=== PATIENT | male | born 1985 | race Caucasian/White ===

== ENCOUNTER 2021-06-21 13:08 | Emergency (ER) | payer MEDICAID ==
[~2021-06-21] VITALS: Ht 170.2 cm; Wt 63.6 kg
[2021-06-21 13:12] VITALS: BP 110/83
[2021-06-21] MEDS ORDERED: IBUP-1984 PO (13:17)
[2021-06-21] MEDS ORDERED: ketorolac tromethamine 15mg/ml inj. IM ONE (13:20)
== END 2021-06-21 13:22 | disposition home or self-care (01) ==
LOC: ER 13:09
DX: M79.604 Pain in right leg (principal); M79.605 Pain in left leg; Z59.0 Homelessness; Z79.899 Other long term (current) drug therapy
CPT/HCPCS: 96372; 99283; J1885

== ENCOUNTER 2021-08-28 23:15 | Emergency (ER) | payer MEDICAID ==
[~2021-08-28] VITALS: Ht 170.2 cm; Wt 72.2 kg
[2021-08-29 00:11] VITALS: BP 133/66
[2021-08-29] MEDS ORDERED: ketorolac trometh inj. 60 MG/2 ML VIAL IM ONE (01:30)
[2021-08-29] MEDS ORDERED: IBUP-1984 PO (01:31)
== END 2021-08-29 02:53 | disposition home or self-care (01) ==
LOC: ER 23:16
DX: M79.605 Pain in left leg (principal); Z59.00 Homelessness unspecified
CPT/HCPCS: 96372; 99283; J1885

== ENCOUNTER 2021-12-05 05:45 | Emergency (ER) | payer MEDICAID ==
[~2021-12-05] VITALS: Ht 170.2 cm; Wt 63.6 kg
[2021-12-05] MEDS ORDERED: haloperidol lactate 5mg/ml inj IM ONE (06:10)
[2021-12-05] MEDS ORDERED: LORazepam 2 mg/ml vial IM ONE (06:10)
[2021-12-05] MEDS ORDERED: diphenhydrAMINE 50 mg/ml inj IM ONE (06:10)
[2021-12-05 08:25] VITALS: BP 132/78
== END 2021-12-05 08:28 ==
LOC: ER 05:46
DX: R45.1 Restlessness and agitation; Z59.00 Homelessness unspecified
CPT/HCPCS: 96372; 99284; J1200; J1630; J2060